=== PATIENT | female | born 1975 | race Caucasian/White ===

== ENCOUNTER 2016-11-29 13:41 | Outpatient (CLI) | payer MEDICARE, MEDICAID | END 2016-11-29 13:42 | disposition short-term general hospital (02) | LOC: EMS 13:41 | PROVIDERS: ATTEND Surgery | DX: M54.2 Cervicalgia (principal); R51 Headache; H53.9 Unspecified visual disturbance | CPT/HCPCS: A0425; A0429 ==

== ENCOUNTER 2018-03-21 16:11 | Outpatient (CLI) | payer MEDICARE | END 2018-03-21 16:12 | disposition critical access hospital (66) | LOC: EMS 16:11 | PROVIDERS: ATTEND Surgery | DX: R42 Dizziness and giddiness (principal); R11.10 Vomiting, unspecified; R23.2 Flushing; R09.89 Other specified symptoms and signs involving the circulatory and respiratory systems | CPT/HCPCS: A0425; A0427 ==

== ENCOUNTER 2018-03-21 16:14 | Emergency (ER) | payer MEDICARE ==
[2018-03-21] MEDS ORDERED: predniSONE 20 MG TABLET PO STA (16:20)
--- NOTE | 2018-03-21 16:22 | ED Physician Documentation ---
History of Present Illness - Stated complaint Stated Complaint: ALLERGIC REACTION - History obtained from History obtained from: Patient, EMS - History of Present Illness Timing: Today (A little before 130 she was eating some deli food with deli meats and some other things in it. She has many known food allergies including seafood. Shortly after eating this she started to feel flushed and hot around the ears with some throat tightness. She called her doctor who recommended coming emergency department. She was administered Benadryl, 25 mg IM in route.) Review of Systems Constitutional: reports: Reviewed and negative Cardiac: denies: Chest pain / pressure Respiratory: denies: Dyspnea, Cough GI: denies: Abdominal Pain : denies: Now [facility] PAST MEDICAL HISTORY - Present Medications Home Medications: Ambulatory Orders Medication Instructions Recorded Confirmed Albuterol 2.5 mg 03/21/18 Citalopram [CeleXA] 20 mg DAILY 03/21/18 03/21/18 Dextroamphetamine/Amphetamine 20 mg 03/21/18 [Adderall 20 mg Tablet] HYDROcod/ACETAM 5/325 [[place] 5/325] 1 tab 03/21/18 clonazePAM [KlonoPIN] 1 mg TID 03/21/18 03/21/18 lamoTRIgine [LaMICtal] 25 mg DAILY 03/21/18 03/21/18 predniSONE [Prednisone] 60 mg PO DAILY 5 Days #15 tablet 03/21/18 - Allergies Allergies/Adverse Reactions: Allergies Allergy/AdvReac Type Severity Reaction Status Date / Time acetaminophen [From Tylenol] Allergy Mild Itching Verified 03/21/18 16:32 levofloxacin [From Levaquin] AdvReac Severe Anaphylaxis Verified 03/21/18 16:32 morphine AdvReac Severe Anaphylaxis Verified 03/21/18 16:32 shellfish derived AdvReac Severe Anaphylaxis Verified 03/21/18 16:33 PD ED PE NORMAL - Vitals Vital signs reviewed: Yes - General General: Alert and oriented X 3, No acute distress - HEENT HEENT: Pharynx benign - Neck Neck: Supple, no meningeal sign, No bony TTP - Respiratory Respiratory: No respiratory distress, Clear bilaterally - Derm Derm: No rash - Psych Psych: Normal mood, Normal affect Results - Vitals Vitals: Vital Signs - 24 hr 03/21/18 16:26 Temperature 36.5 C Heart Rate 50 L Respiratory 16 Rate Blood Pressure 119/86 H O2 Saturation 100 Oxygen O2 Source Room air PD MEDICAL DECISION MAKING - ED course ED course: She presents with symptoms of a foodborne allergic reaction but there are no physical findings at this juncture. She is treated with steroids. - Sepsis Event Vital Signs: Vital Signs - 24 hr 03/21/18 16:26 Temperature 36.5 C Heart Rate 50 L Respiratory 16 Rate Blood Pressure 119/86 H O2 Saturation 100 Oxygen O2 Source Room air Departure - Departure Disposition: 01 Home, Self Care Clinical Impression: Allergic reaction Qualifiers: Encounter type: initial encounter Qualified Code(s): T78.40XA - Allergy, unspecified, initial encounter Condition: Good Record reviewed to determine appropriate education?: Yes Instructions: ED Allergic React Food Prescriptions: predniSONE [Prednisone] 60 mg PO DAILY 5 Days #15 tablet Comments: Call your doctor to arrange a follow-up appointment, make the next available appointment. In the interim, return anytime if worse or if new symptoms develop. Discharge Date/Time: 03/21/18 16:55
[2018-03-21 16:32] VITALS: BP 119/86
== END 2018-03-21 16:55 | disposition home or self-care (01) ==
LOC: EDUNIT# → ED 16:14
DX: T78.1XXA Other adverse food reactions, not elsewhere classified, initial encounter (principal); R23.2 Flushing; R09.89 Other specified symptoms and signs involving the circulatory and respiratory systems
CPT/HCPCS: 99283; J7512

== ENCOUNTER 2018-09-19 23:06 | Emergency (ER) | payer MEDICARE ==
--- NOTE | 2018-09-20 00:39 | ED Physician Documentation ---
History of Present Illness - Stated complaint Stated Complaint: COUGH/FEVER - Chief complaint Chief Complaint: General - History obtained from History obtained from: Patient - History of Present Illness Timing: How many weeks ago (2) Pain level now: 5 (chest pain (with coughing)) Improved by: rest Worsened by: coughing - Additonal information Additional information: c/o 2 weeks of coughing, initially nonproductive but has become productive of discolored sputum. She has generalized chest pain with coughing. She has not taken her temperature at home but has had sweats/chills. Here with son, who is also registered as ED patient for similar symptoms. Review of Systems Constitutional: reports: Chills, Sweats. denies: Myalgias Nose: reports: Rhinorrhea / runny nose, Congestion Throat: reports: Sore throat Cardiac: reports: Chest pain / pressure (with coughing only) Respiratory: reports: Cough. denies: Dyspnea, Wheezing GI: reports: Reviewed and negative Skin: denies: Rash PD PAST MEDICAL HISTORY - Past Medical History Past Medical History: Yes Cardiovascular: Other Respiratory: Asthma, Pneumonia GI: Ulcers MULTI MEDIA SPECIALIST: Endometriosis Psych: Anxiety, Post traumatic stress disorder - Past Surgical History Past Surgical History: Yes /MULTI MEDIA SPECIALIST: Dilation and currettage - Present Medications Home Medications: Ambulatory Orders Medication Instructions Recorded Confirmed Albuterol 2.5 mg 03/21/18 Citalopram [CeleXA] 20 mg DAILY 03/21/18 03/21/18 Dextroamphetamine/Amphetamine 20 mg 03/21/18 [Adderall 20 mg Tablet] HYDROcod/ACETAM 5/325 [[place] 5/325] 1 tab 03/21/18 clonazePAM [KlonoPIN] 1 mg TID 03/21/18 03/21/18 lamoTRIgine [LaMICtal] 25 mg DAILY 03/21/18 03/21/18 predniSONE [Prednisone] 60 mg PO DAILY 5 Days #15 tablet 03/21/18 guaiFENesin/CODEINE [Robitussin AC] 5 - 10 ml PO Q6H PRN #100 udc 09/20/18 - Allergies Allergies/Adverse Reactions: Allergies Allergy/AdvReac Type Severity Reaction Status Date / Time acetaminophen [From Tylenol] Allergy Mild Itching Verified 09/19/18 23:19 levofloxacin [From Levaquin] AdvReac Severe Anaphylaxis Verified 09/19/18 23:19 morphine AdvReac Severe Anaphylaxis Verified 09/19/18 23:19 shellfish derived AdvReac Severe Anaphylaxis Verified 09/19/18 23:19 - Social History Does the pt smoke?: No Smoking Status: Never smoker Does the pt drink ETOH?: Yes Does the pt have substance abuse?: No - Immunizations Immunizations are current?: No Immunizations: TDAP >10years/unknown - POLST Patient has POLST: No PD ED PE NORMAL - Vitals Vital signs reviewed: Yes - General General: Alert and oriented X 3, No acute distress, Well developed/nourished - HEENT HEENT: PERRL, EOMI, Ears normal, Moist mucous membranes, Pharynx benign - Neck Neck: Supple, no meningeal sign - Cardiac Cardiac: RRR, No murmur - Respiratory Respiratory: No respiratory distress, Other (left lower lung field rhonchi) Results - Vitals Vitals: Oxygen O2 Source Room air - Labs Labs: Laboratory Tests 09/19/18 23:30 Influenza A (Rapid) Negative Influenza B (Rapid) Negative - Rads (name of study) chest xray Radiology: Prelim report reviewed, See rad report PD MEDICAL DECISION MAKING - ED course Complexity details: reviewed results, re-evaluated patient, considered differential, d/w patient ED course: Patient's chest xray is unremarkable and symptoms x 2 weeks. Afebrile in ED, sounds like she is describing on-going symptoms for 2 weeks and I suspect she has lingering symptoms from bronchitis. Departure - Departure Disposition: 01 Home, Self Care Clinical Impression: Bronchitis Condition: Good Instructions: ED Upper Resp Infec No Abx Tx Follow-Up: Jaycee Clifford DO [Primary Care Provider] - (3-4 days if not improving) Prescriptions: guaiFENesin/CODEINE [Robitussin AC] 5 - 10 ml PO Q6H PRN #100 udc PRN Reason: Cough Discharge Date/Time: 09/20/18 03:01
--- NOTE | 2018-09-20 01:46 | XRAY Report ---
Reason: cough, rhonci Procedure Date: 09/20/2018 Accession Number: [id number] / [id number] Procedure: XR - Chest 2 View X-Ray CPT Code: 90949 FULL RESULT: EXAM: CHEST RADIOGRAPHY EXAM DATE: 09/20/2018 01:30 AM. CLINICAL HISTORY: Cough, rhonci. COMPARISON: None. TECHNIQUE: 2 views. FINDINGS: Lungs/Pleura: No focal opacities evident. No pleural effusion. No pneumothorax. Normal volumes. Mediastinum: Heart and mediastinal contours are unremarkable. Other: None. IMPRESSION: Normal 2-view chest radiography. [facility]
[2018-09-20 02:44] VITALS: BP 101/60
[2018-09-20] MEDS ORDERED: guaiFENesin/CODEINE 5 ML UDC PO STA (02:52)
== END 2018-09-20 03:01 | disposition home or self-care (01) ==
LOC: ED 23:06
DX: J40 Bronchitis, not specified as acute or chronic (principal)
CPT/HCPCS: 71046; 87275; 87276; 99283; A9270